=== PATIENT | male | born 1980 | race Caucasian/White ===

== ENCOUNTER 2017-09-22 17:50 | Inpatient (IN) | payer BC ==
[2017-09-22 22:37] LABS: TROPONIN-I 0.051 ng/ml (0.000-0.120)
[2017-09-23] MEDS ORDERED: BISACODYL 10 MG SUPP PR
[2017-09-23] MEDS ORDERED: BISACODYL (EC) 5 MG TAB PO
[2017-09-23] MEDS ORDERED: MAGNESIUM HYDROXIDE 30ML CUP PO
[2017-09-23] MEDS ORDERED: ZOLPIDEM 5 MG TAB PO
[2017-09-23] MEDS ORDERED: ACETAMINOPHEN 650 MG SUPP PR
[2017-09-23] MEDS ORDERED: DOCUSATE SODIUM 100 MG CAP PO
[2017-09-23] MEDS ORDERED: NACL 0.9% 3 ML SYG IV
[2017-09-23] MEDS: morphine 2 MG INJ IV ×2 (00:40→06:36)
[2017-09-23 01:25] LABS: CREATINE KINASE 58 IU/L (23-200)
[2017-09-23 01:36] LABS: CK INDEX 0.6; TROPONIN-I 0.052 ng/ml (0.000-0.120)
[2017-09-23 01:37] LABS: CK-MB 0.34 ng/ml (0.0-2.4)
[2017-09-23] MEDS: PANTOPRAZOLE (EC) 40 MG TAB PO (06:32)
[2017-09-23 07:04] LABS: CREATINE KINASE 59 IU/L (23-200)
[2017-09-23 07:13] LABS: URIC ACID 10.2 mg/dl (3.1-7.9)
[2017-09-23 07:17] LABS: CK INDEX 0.9; TROPONIN-I 0.054 ng/ml (0.000-0.120)
[2017-09-23 07:20] LABS: CK-MB 0.52 ng/ml (0.0-2.4)
[2017-09-23 07:44] LABS: HEMOGLOBIN A1C 5.8 % (0-5.9)
[2017-09-23] MEDS ORDERED: ENOXAPARIN 40 MG/0.4 ML SYG SC (09:00)
[2017-09-23] MEDS: ASPIRIN 81 MG TAB PO (09:04)
[2017-09-23] MEDS: FUROSEMIDE 40 MG INJ IV (09:04)
[2017-09-23] MEDS: ENOXAPARIN 40 MG/0.4 ML SYG SC (09:10)
[2017-09-23] MEDS: HYDROCODONE/APAP (5/325) TAB PO (18:19)
[2017-09-23] MEDS: ALLOPURINOL 100 MG TAB PO (19:04)
[2017-09-23] MEDS: morphine LIQ (10 MG/5 ML) CUP PO (20:47)
[2017-09-23] MEDS: ACETAMINOPHEN 325 MG TAB PO (22:55)
[2017-09-23] MEDS: HYDROmorphONE 1 MG/ML SYG IV (23:50)
[2017-09-23] MEDS: CEFTRIAXONE 1 GM/50 ML (PMX) 50 ML IVPB ×2 (23:54)
[2017-09-24] MEDS: PANTOPRAZOLE (EC) 40 MG TAB PO (06:20)
[2017-09-24] MEDS: HYDROmorphONE 1 MG/ML SYG IV ×2 (07:51→13:29)
[2017-09-24] MEDS: ASPIRIN 81 MG TAB PO (07:55)
[2017-09-24] MEDS: ALLOPURINOL 100 MG TAB PO (07:55)
[2017-09-24] MEDS: FUROSEMIDE 40 MG INJ IV (07:56)
[2017-09-24] MEDS: ENOXAPARIN 40 MG/0.4 ML SYG SC (07:58)
[2017-09-24] MEDS: METOPROLOL (XL) 25 MG TAB PO (08:00)
[2017-09-24] MEDS: BENAZEPRIL 5 MG TAB PO ×2 (08:01→15:39)
[2017-09-24 09:10] LABS: ADD MAN DIFF? NO
[2017-09-24 09:14] LABS: WHITE BLOOD COUNT 14.6 10^3/ul (4.8-10.8)
[2017-09-24 09:14] LABS: BASOPHILS % 0.3 % (0.0-2.0); EOSINOPHILS # 0.1 10^3/ul (0.0-0.5); EOSINOPHILS % 0.5 % (0.0-7.0); HEMATOCRIT 45.1 % (42.0-52.0); LYMPHOCYTES # 1.8 10^3/ul (0.8-2.9); LYMPHOCYTES % 12.6 % (15.0-51.0); MEAN CORPUSCULAR HGB CONC 33.3 g/dl (32.0-37.0); MEAN CORPUSCULAR VOLUME 84.1 fl (82.0-101.0); MEAN PLATELET VOLUME 10.2 fl (7.4-10.4); MONOCYTE # 0.9 10^3/ul (0.3-0.9); MONOCYTES % 6.2 % (0.0-11.0); NEUTROPHIL # 11.6 10^3/ul (1.6-7.5); NEUTROPHILS % 79.2 % (39.0-77.0); PLATELET COUNT 334 10^3/UL (140-415); RED BLOOD COUNT 5.36 10^6/ul (4.70-6.10); RED CELL DISTRIBUTION WIDTH 13.6 % (11.5-14.5)
[2017-09-24 09:37] LABS: ANION GAP 18 (8-16); BLOOD UREA NITROGEN 16 mg/dl (7-20); CALCIUM 8.5 mg/dl (8.4-10.2); CARBON DIOXIDE 29 mmol/L (21-31); CHLORIDE 96 mmol/L (97-110); CREATININE 0.91 mg/dl (0.61-1.24); GLUCOSE 137 mg/dl (70-220); POTASSIUM 3.6 mmol/L (3.5-5.1); SODIUM 139 mmol/L (135-144)
[2017-09-24] MEDS: morphine LIQ (10 MG/5 ML) CUP PO (11:00)
[2017-09-24] MEDS: DIGOXIN 500 MCG INJ IV (15:42)
[2017-09-24] MEDS: HYDROmorphONE 2 MG TAB PO (17:32)
[2017-09-24] MEDS: IBUPROFEN 400 MG TAB PO (17:32)
[2017-09-24 19:27] LABS: TROPONIN-I 0.027 ng/ml (0.000-0.120)
[2017-09-24] MEDS: COLCHICINE 0.6 MG TAB PO (20:38)
[2017-09-25] MEDS: CEFTRIAXONE 1 GM/50 ML (PMX) 50 ML IVPB (00:43)
[2017-09-25] MEDS: HYDROmorphONE 2 MG TAB PO (00:43)
[2017-09-25] MEDS: PANTOPRAZOLE (EC) 40 MG TAB PO (05:30)
[2017-09-25] MEDS: COLCHICINE 0.6 MG TAB PO ×2 (08:43→21:40)
[2017-09-25] MEDS: FUROSEMIDE 40 MG INJ IV (08:43)
[2017-09-25] MEDS: IBUPROFEN 400 MG TAB PO ×3 (08:43→21:52)
[2017-09-25] MEDS: METOPROLOL (XL) 25 MG TAB PO (08:44)
[2017-09-25] MEDS: BENAZEPRIL 10 MG TAB PO (08:44)
[2017-09-25] MEDS: ALLOPURINOL 100 MG TAB PO (08:44)
[2017-09-25] MEDS: ASPIRIN 81 MG TAB PO (08:45)
[2017-09-25] MEDS: ENOXAPARIN 40 MG/0.4 ML SYG SC (08:47)
[2017-09-25 09:48] LABS: ADD MAN DIFF? NO
[2017-09-25 09:53] LABS: BASOPHIL # 0.1 10^3/ul (0.0-0.1); BASOPHILS % 0.4 % (0.0-2.0); EOSINOPHILS # 0.2 10^3/ul (0.0-0.5); HEMATOCRIT 45.6 % (42.0-52.0); HEMOGLOBIN 14.8 g/dl (14.0-18.0); LYMPHOCYTES % 12.6 % (15.0-51.0); MEAN CORPUSCULAR HEMOGLOBIN 27.8 pg (29.0-33.0); MEAN CORPUSCULAR HGB CONC 32.5 g/dl (32.0-37.0); MEAN CORPUSCULAR VOLUME 85.7 fl (82.0-101.0); MEAN PLATELET VOLUME 11.1 fl (7.4-10.4); MONOCYTE # 1.1 10^3/ul (0.3-0.9); MONOCYTES % 7.1 % (0.0-11.0); NEUTROPHIL # 12.4 10^3/ul (1.6-7.5); NEUTROPHILS % 77.3 % (39.0-77.0); PLATELET COUNT 297 10^3/UL (140-415); RED BLOOD COUNT 5.32 10^6/ul (4.70-6.10); RED CELL DISTRIBUTION WIDTH 13.6 % (11.5-14.5)
[2017-09-25 10:11] LABS: CHOLESTEROL 190 mg/dl (100-200)
[2017-09-25 10:11] LABS: CHOL/HDL RATIO 4.5 RATIO; HDL CHOLESTEROL 42 mg/dl (28-63); LDL CHOLESTEROL,CALCULATED 126 mg/dl; TRIGLYCERIDES 110 mg/dl (0-149)
[2017-09-25 10:17] LABS: ANION GAP 14 (8-16); BLOOD UREA NITROGEN 17 mg/dl (7-20); CALCIUM 8.7 mg/dl (8.4-10.2); CARBON DIOXIDE 31 mmol/L (21-31); CHLORIDE 98 mmol/L (97-110); CREATININE 0.85 mg/dl (0.61-1.24); GLUCOSE 97 mg/dl (70-220); POTASSIUM 4.1 mmol/L (3.5-5.1); SODIUM 139 mmol/L (135-144)
[2017-09-25 10:24] LABS: PHOSPHORUS 3.4 mg/dl (2.5-4.9)
[2017-09-25] MEDS ORDERED: VANCOMYCIN IV PER PHARMACY XX (15:00)
[2017-09-25 15:06] LABS: INR 0.99; PROTIME 13.2 Sec (11.9-14.9)
[2017-09-25 15:07] LABS: PARTIAL THROMBOPLASTIN TIME 33.1 Sec (25.0-35.0)
[2017-09-25] MEDS: VANCOMYCIN 1.5 GM in SOD CHLORIDE 0.9% 250 ML IVPB (17:47)
[2017-09-25] MEDS: ENOXAPARIN 100 MG/ML SYG SC (21:43)
[2017-09-26] MEDS: CEFTRIAXONE 1 GM/50 ML (PMX) 50 ML IVPB (02:02)
[2017-09-26] MEDS: VANCOMYCIN 1 GM 250 ML IVPB ×3 (02:50→17:26)
[2017-09-26] MEDS: PANTOPRAZOLE (EC) 40 MG TAB PO (06:13)
[2017-09-26 07:33] LABS: ADD MAN DIFF? NO
[2017-09-26 07:38] LABS: WHITE BLOOD COUNT 10.1 10^3/ul (4.8-10.8)
[2017-09-26 07:38] LABS: BASOPHILS % 0.4 % (0.0-2.0); EOSINOPHILS # 0.3 10^3/ul (0.0-0.5); EOSINOPHILS % 2.9 % (0.0-7.0); HEMATOCRIT 42.2 % (42.0-52.0); HEMOGLOBIN 14.1 g/dl (14.0-18.0); LYMPHOCYTES # 1.7 10^3/ul (0.8-2.9); LYMPHOCYTES % 16.5 % (15.0-51.0); MEAN CORPUSCULAR HEMOGLOBIN 28.1 pg (29.0-33.0); MEAN CORPUSCULAR HGB CONC 33.4 g/dl (32.0-37.0); MEAN CORPUSCULAR VOLUME 84.2 fl (82.0-101.0); MEAN PLATELET VOLUME 10.4 fl (7.4-10.4); MONOCYTE # 0.8 10^3/ul (0.3-0.9); MONOCYTES % 7.8 % (0.0-11.0); NEUTROPHIL # 7.1 10^3/ul (1.6-7.5); PLATELET COUNT 327 10^3/UL (140-415); RED BLOOD COUNT 5.01 10^6/ul (4.70-6.10); RED CELL DISTRIBUTION WIDTH 13.5 % (11.5-14.5)
[2017-09-26 07:51] LABS: ANION GAP 10 (8-16); BLOOD UREA NITROGEN 19 mg/dl (7-20); CALCIUM 8.4 mg/dl (8.4-10.2); CARBON DIOXIDE 27 mmol/L (21-31); CHLORIDE 106 mmol/L (97-110); CREATININE 0.74 mg/dl (0.61-1.24); GLUCOSE 106 mg/dl (70-220); SODIUM 139 mmol/L (135-144)
[2017-09-26 08:08] LABS: MAGNESIUM 1.9 mg/dl (1.7-2.5)
[2017-09-26] MEDS: FUROSEMIDE 40 MG INJ IV (08:45)
[2017-09-26] MEDS: ASPIRIN 81 MG TAB PO (08:45)
[2017-09-26] MEDS: ALLOPURINOL 100 MG TAB PO (08:45)
[2017-09-26] MEDS: METOPROLOL (XL) 25 MG TAB PO (08:46)
[2017-09-26] MEDS: BENAZEPRIL 10 MG TAB PO (08:46)
[2017-09-26] MEDS: COLCHICINE 0.6 MG TAB PO ×2 (08:46→22:13)
[2017-09-26] MEDS: ENOXAPARIN 100 MG/ML SYG SC ×2 (08:47→22:29)
[2017-09-26] MEDS: REGADENOSON 0.4 MG/5 ML SYG (11:35)
[2017-09-26 17:16] LABS: VANCOMYCIN,TROUGH 7.9 ug/ml (10.0-20.0)
[2017-09-26] MEDS: ATORVASTATIN 10 MG TAB PO (22:13)
[2017-09-27] MEDS: CEFTRIAXONE 1 GM/50 ML (PMX) 50 ML IVPB (00:18)
[2017-09-27] MEDS: VANCOMYCIN 1.25 GM in SOD CHLORIDE 0.9% 250 ML IVPB ×3 (00:59→16:36)
[2017-09-27] MEDS: PANTOPRAZOLE (EC) 40 MG TAB PO (05:27)
[2017-09-27 06:45] LABS: ADD MAN DIFF? NO
[2017-09-27 06:53] LABS: BASOPHIL # 0.1 10^3/ul (0.0-0.1); BASOPHILS % 0.7 % (0.0-2.0); EOSINOPHILS # 0.3 10^3/ul (0.0-0.5); EOSINOPHILS % 2.5 % (0.0-7.0); HEMOGLOBIN 14.5 g/dl (14.0-18.0); LYMPHOCYTES % 17.3 % (15.0-51.0); MEAN CORPUSCULAR HEMOGLOBIN 27.9 pg (29.0-33.0); MEAN CORPUSCULAR VOLUME 84.8 fl (82.0-101.0); MEAN PLATELET VOLUME 10.7 fl (7.4-10.4); MONOCYTE # 0.8 10^3/ul (0.3-0.9); MONOCYTES % 6.7 % (0.0-11.0); NEUTROPHIL # 8.3 10^3/ul (1.6-7.5); PLATELET COUNT 363 10^3/UL (140-415); RED BLOOD COUNT 5.19 10^6/ul (4.70-6.10); RED CELL DISTRIBUTION WIDTH 13.1 % (11.5-14.5)
[2017-09-27 06:53] LABS: WHITE BLOOD COUNT 11.7 10^3/ul (4.8-10.8)
[2017-09-27 07:18] LABS: ANION GAP 14 (8-16); BLOOD UREA NITROGEN 15 mg/dl (7-20); CALCIUM 8.6 mg/dl (8.4-10.2); CARBON DIOXIDE 25 mmol/L (21-31); CHLORIDE 107 mmol/L (97-110); CREATININE 0.78 mg/dl (0.61-1.24); GLUCOSE 119 mg/dl (70-220); POTASSIUM 4.1 mmol/L (3.5-5.1); SODIUM 142 mmol/L (135-144); URIC ACID 7.7 mg/dl (3.1-7.9)
[2017-09-27] MEDS: SPIRONOLACTONE 25 MG TAB PO (08:41)
[2017-09-27] MEDS: BENAZEPRIL 10 MG TAB PO (08:41)
[2017-09-27] MEDS: ALLOPURINOL 100 MG TAB PO (08:42)
[2017-09-27] MEDS: COLCHICINE 0.6 MG TAB PO ×2 (08:42→20:40)
[2017-09-27] MEDS: METOPROLOL (XL) 25 MG TAB PO (08:42)
[2017-09-27] MEDS: ASPIRIN 81 MG TAB PO (08:42)
[2017-09-27] MEDS: ENOXAPARIN 100 MG/ML SYG SC ×2 (08:43→20:43)
[2017-09-27] MEDS: FUROSEMIDE 40 MG INJ IV (08:59)
[2017-09-27] MEDS ORDERED: BUPIVACAINE 0.5%/EPI (SDV) 30 ML INJ INJ (17:00)
[2017-09-27] MEDS ORDERED: BETAMET NA PHOS/AC(6 MG/ML) 5ML INJ IM (17:00)
[2017-09-27] MEDS: ATORVASTATIN 10 MG TAB PO (20:40)
[2017-09-28] MEDS: CEFTRIAXONE 1 GM/50 ML (PMX) 50 ML IVPB (00:03)
[2017-09-28] MEDS: VANCOMYCIN 1.25 GM in SOD CHLORIDE 0.9% 250 ML IVPB ×2 (00:52→10:23)
[2017-09-28 02:12] LABS: VANCOMYCIN,TROUGH 14.1 ug/ml (10.0-20.0)
[2017-09-28] MEDS: PANTOPRAZOLE (EC) 40 MG TAB PO (05:45)
[2017-09-28] MEDS: COLCHICINE 0.6 MG TAB PO (09:42)
[2017-09-28] MEDS: ALLOPURINOL 100 MG TAB PO (09:42)
[2017-09-28] MEDS: FUROSEMIDE 40 MG INJ IV (09:42)
[2017-09-28] MEDS: SPIRONOLACTONE 25 MG TAB PO (09:43)
[2017-09-28] MEDS: ASPIRIN 81 MG TAB PO (09:43)
[2017-09-28] MEDS: BENAZEPRIL 10 MG TAB PO (09:43)
[2017-09-28] MEDS: METOPROLOL (XL) 25 MG TAB PO (09:43)
[2017-09-28] MEDS: ENOXAPARIN 100 MG/ML SYG SC (09:56)
== END 2017-09-28 15:40 | disposition home or self-care (01) | DRG 553 ==
LOC: MS4 09-23 09:36 → MS3 17:50 → MS4 09-23 09:57 → MS3 17:50 → MS4 23:22
PROVIDERS: Internal Medicine Nephrology
DX: M10.072 Idiopathic gout, left ankle and foot (principal); I50.23 Acute on chronic systolic (congestive) heart failure; I42.8 Other cardiomyopathies; I11.0 Hypertensive heart disease with heart failure; Z91.14 Patient's other noncompliance with medication regimen; Z86.711 Personal history of pulmonary embolism; I27.20 Pulmonary hypertension, unspecified; F15.10 Other stimulant abuse, uncomplicated; F14.10 Cocaine abuse, uncomplicated; M25.461 Effusion, right knee
CPT/HCPCS: 71045; 73562; 78452; 80048; 80061; 80202; 82550; 82553; 83036; 83735; 84100; 84484; 84560; 85025; 85610; 85730; 87040; 93017; 93306; 93970

== ENCOUNTER 2018-06-30 10:14 | Emergency (ER) | payer BC ==
[2018-06-30 11:13] LABS: WHITE BLOOD COUNT 13.2 10^3/ul (4.8-10.8)
[2018-06-30 11:13] LABS: ADD MAN DIFF? NO; BASOPHIL # 0.1 10^3/ul (0.0-0.1); BASOPHILS % 0.4 % (0.0-2.0); EOSINOPHILS # 0.1 10^3/ul (0.0-0.5); EOSINOPHILS % 0.9 % (0.0-7.0); HEMATOCRIT 43.1 % (42.0-52.0); HEMOGLOBIN 13.9 g/dl (14.0-18.0); LYMPHOCYTES % 15.1 % (15.0-51.0); MEAN CORPUSCULAR HGB CONC 32.3 g/dl (32.0-37.0); MEAN CORPUSCULAR VOLUME 83.9 fl (82.0-101.0); MEAN PLATELET VOLUME 9.5 fl (7.4-10.4); MONOCYTE # 1.3 10^3/ul (0.3-0.9); NEUTROPHIL # 9.5 10^3/ul (1.6-7.5); NEUTROPHILS % 71.9 % (39.0-77.0); PLATELET COUNT 219 10^3/UL (140-415); RED BLOOD COUNT 5.14 10^6/ul (4.70-6.10); RED CELL DISTRIBUTION WIDTH 14.1 % (11.5-14.5)
[2018-06-30] MEDS: KETOROLAC 15 MG INJ IV (11:28)
[2018-06-30] MEDS: FUROSEMIDE 40 MG INJ IV (11:28)
[2018-06-30 11:38] LABS: ALANINE AMINOTRANSFERASE 28 IU/L (13-69); ALBUMIN 4.1 g/dl (3.3-4.9); ALBUMIN/GLOBULIN RATIO 1.13; ALKALINE PHOSPHATASE 101 IU/L (42-121); ANION GAP 12 (5-13); ASPARTATE AMINO TRANSFERASE 22 IU/L (15-46); BILIRUBIN,INDIRECT 0.6 mg/dl (0-1.1); BILIRUBIN,TOTAL 0.6 mg/dl (0.2-1.3); BLOOD UREA NITROGEN 13 mg/dl (7-20); CALCIUM 9.2 mg/dl (8.4-10.2); CARBON DIOXIDE 27 mmol/L (21-31); CHLORIDE 102 mmol/L (97-110); CREATININE 0.64 mg/dl (0.61-1.24); Estimated GFR > 60 mL/min (>60); GLUCOSE 125 mg/dl (70-220); LIPASE 202 U/L (23-300); POTASSIUM 4.3 mmol/L (3.5-5.1); SODIUM 141 mmol/L (135-144); TOTAL PROTEIN 7.7 g/dl (6.1-8.1); URIC ACID 6.1 mg/dl (3.1-7.9)
[2018-06-30 11:50] LABS: B-TYPE NATRIURETIC PEPTIDE 646 PG/ML (0-125); TROPONIN-I 0.017 ng/ml (0.000-0.120)
[2018-06-30 11:59] LABS: ADD UMIC NO; UR ASCORBIC ACID 40 mg/dL (NEGATIVE); UR BILIRUBIN (Dip) NEGATIVE (NEGATIVE); UR BLOOD (Dip) NEGATIVE (NEGATIVE); UR CLARITY CLEAR (CLEAR); UR COLOR YELLOW (YELLOW); UR GLUCOSE (Dip) NEGATIVE (NEGATIVE); UR KETONES (Dip) NEGATIVE (NEGATIVE); UR LEUKOCYTE ESTERASE (Dip) NEGATIVE Leu/ul (NEGATIVE); UR NITRITE (Dip) NEGATIVE (NEGATIVE); UR SPECIFIC GRAVITY (Dip) 1.018 (1.003-1.030); UR TOTAL PROTEIN (Dip) NEGATIVE (NEGATIVE); UR UROBILINOGEN (Dip) 1+ mg/dL (NEGATIVE)
== END 2018-06-30 12:59 | disposition home or self-care (01) ==
LOC: E/R 10:14
DX: I50.41 Acute combined systolic (congestive) and diastolic (congestive) heart failure (principal); M25.461 Effusion, right knee; I10 Essential (primary) hypertension; Z79.82 Long term (current) use of aspirin; Z86.73 Personal history of transient ischemic attack (TIA), and cerebral infarction without residual deficits
CPT/HCPCS: 36415; 71045; 80053; 81003; 83690; 83880; 84484; 84560; 85025; 93005; 96374; 96375; 99285-25

== ENCOUNTER 2018-07-09 08:56 | Emergency (ER) | payer BC ==
[2018-07-09] MEDS: DIPHENHYDRAMINE 50 MG INJ IV (09:44)
[2018-07-09] MEDS: FUROSEMIDE 40 MG INJ IV (09:44)
[2018-07-09] MEDS: DEXAMETHASONE 10 MG/ML 1 ML INJ IV (09:44)
[2018-07-09 09:53] LABS: ADD MAN DIFF? NO
[2018-07-09 09:54] LABS: BASOPHIL # 0.1 10^3/ul (0.0-0.1); BASOPHILS % 0.5 % (0.0-2.0); EOSINOPHILS % 0.2 % (0.0-7.0); HEMATOCRIT 46.7 % (42.0-52.0); HEMOGLOBIN 15.4 g/dl (14.0-18.0); LYMPHOCYTES # 1.9 10^3/ul (0.8-2.9); LYMPHOCYTES % 11.6 % (15.0-51.0); MEAN CORPUSCULAR HEMOGLOBIN 27.4 pg (29.0-33.0); MEAN CORPUSCULAR VOLUME 83.1 fl (82.0-101.0); MEAN PLATELET VOLUME 9.3 fl (7.4-10.4); MONOCYTE # 0.3 10^3/ul (0.3-0.9); MONOCYTES % 1.7 % (0.0-11.0); PLATELET COUNT 416 10^3/UL (140-415); RED BLOOD COUNT 5.62 10^6/ul (4.70-6.10); RED CELL DISTRIBUTION WIDTH 14.1 % (11.5-14.5)
[2018-07-09 09:54] LABS: WHITE BLOOD COUNT 16.7 10^3/ul (4.8-10.8)
[2018-07-09 10:14] LABS: ANION GAP 13 (5-13); BLOOD UREA NITROGEN 17 mg/dl (7-20); CALCIUM 9.2 mg/dl (8.4-10.2); CARBON DIOXIDE 24 mmol/L (21-31); CHLORIDE 104 mmol/L (97-110); CREATININE 0.82 mg/dl (0.61-1.24); Estimated GFR > 60 mL/min (>60); GLUCOSE 151 mg/dl (70-220); SODIUM 141 mmol/L (135-144)
[2018-07-09 10:26] LABS: B-TYPE NATRIURETIC PEPTIDE 365 PG/ML (0-125); TROPONIN-I < 0.012 ng/ml (0.000-0.120)
== END 2018-07-09 12:29 | disposition home or self-care (01) ==
LOC: E/R 08:56
DX: L50.1 Idiopathic urticaria (principal); R06.02 Shortness of breath; R51 Headache; I50.9 Heart failure, unspecified; Z79.82 Long term (current) use of aspirin; Z86.79 Personal history of other diseases of the circulatory system
CPT/HCPCS: 36415; 70450; 71045; 80048; 83880; 84484; 85025; 93005; 96374; 96375; 99285-25